=== PATIENT | female | born 1995 ===

== ENCOUNTER 2024-08-30 10:14 | Day surgery (SDC) | payer OTHER ==
[2024-08-28 09:34] LABS: PH,URINE 5.5 (5.0-8.0); URINE APPEARANCE Cloudy; URINE BILIRRUBIN Negative (NEGATIVE); URINE BLOOD Negative; URINE COLOR Yellow; URINE GLUCOSE Negative (NEGATIVE); URINE KETONE Negative (NEGATIVE); URINE LEUKOCYTE Moderate; URINE NITRATE Negative; URINE PROTEIN Negative (NEGATIVE); URINE UROBILINOGEN 0.2 E.U./dl
[2024-08-28 09:36] LABS: URINE BACTERIA 5582.5 uL (0.0-1933); URINE EPITHELIAL CELLS 113.1 uL (0.0-38.8); URINE WBC 37.8 uL (0.0-23.2)
[2024-08-28 09:38] LABS: HEMATOCRIT 33.7 % (36.0-45.00); MEAN CELL VOLUME 85.3 fL (80.00-100.00); MEAN CORPUSCULAR HGB CONC 35.4 g/dl (32.0-36.0); PLATELET COUNT 247 K/uL (150-450); RED BLOOD COUNT 3.95 M/uL (4.00-6.00); RED CELL DISTRIBUTION WIDTH 14.2 % (11.5-14.5)
[2024-08-28 09:47] LABS: HEMOGLOBIN 11.9 g/dL (12.0-15.00); MEAN CORPUSCULAR HEMOGLOBIN 30.1 pg (27.00-32.0)
[2024-08-28 09:48] LABS: URINE CAST 0.29 uL (0.0-1.40)
[2024-08-28 09:53] LABS: URINE CRYSTALS FEW /HPF; URINE MUCUS MODERATE
[2024-08-28 09:58] LABS: INR 1.03; PARTIAL THROMBOPLASTIN TIME 28.3 SECONDS (22.0-34.0); PROTHROMBIN TIME 11.2 SECONDS (9.0-11.5)
[2024-08-28 11:25] LABS: RH NEGATIVE
[2024-08-30] MEDS ORDERED: POVIDONE-IODINE 118 ML BOTT TOP ONE (14:59)
[2024-08-30] MEDS ORDERED: RINGERS SOLUTION,LACTATED 1,000 ML IV SCH (16:00)
== END 2024-08-30 21:40 | disposition home or self-care (01) ==
LOC: CIR.AMB 10:14
PROVIDERS: ATTEND Obstetrics & Gynecology
DX: O02.1 Missed abortion (principal)